=== PATIENT | female | born 1990 | race Two or more races ===

== ENCOUNTER 2022-12-27 08:01 | Outpatient (CLI) | payer OTHER | END 2022-12-27 09:15 | disposition home or self-care (01) | LOC: PRENATAL 08:01 | PROVIDERS: ATTEND Obstetrics & Gynecology Maternal & Fetal Medicine | DX: O36.80X0 Pregnancy with inconclusive fetal viability, not applicable or unspecified (principal); Z36.82 Encounter for antenatal screening for nuchal translucency; Z36.9 Encounter for antenatal screening, unspecified; O99.891 Other specified diseases and conditions complicating pregnancy; Z3A.13 13 weeks gestation of pregnancy ==

== ENCOUNTER 2023-02-17 12:31 | Outpatient (CLI) | payer OTHER | END 2023-02-17 12:32 | disposition home or self-care (01) | LOC: PRENATAL 12:31 | PROVIDERS: ATTEND Obstetrics & Gynecology Maternal & Fetal Medicine | DX: O35.9XX0 Maternal care for (suspected) fetal abnormality and damage, unspecified, not applicable or unspecified (principal); O35.3XX0 Maternal care for (suspected) damage to fetus from viral disease in mother, not applicable or unspecified; O44.00 Complete placenta previa NOS or without hemorrhage, unspecified trimester; Z3A.20 20 weeks gestation of pregnancy ==

== ENCOUNTER 2023-03-12 19:40 | Outpatient (CLI) | payer OTHER ==
[2023-03-12] MEDS ORDERED: PRENATABS RX T1 EACH PO (19:58)
[2023-03-12 20:15] LABS: HEMATOCRIT 34.8 % (36.0-45.00); HEMOGLOBIN 11.5 g/dL (12.0-15.00); MEAN CELL VOLUME 76.7 fL (80.00-100.00); MEAN CORPUSCULAR HEMOGLOBIN 25.4 pg (27.00-32.0); PLATELET COUNT 320 K/uL (150-450); RED BLOOD COUNT 4.53 M/uL (4.00-6.00); RED CELL DISTRIBUTION WIDTH 13.6 % (11.5-14.5)
[2023-03-12 20:19] LABS: PH,URINE 6.5 (5.0-8.0); URINE APPEARANCE Turbid; URINE BILIRRUBIN Negative (NEGATIVE); URINE BLOOD Large; URINE COLOR Red; URINE GLUCOSE Negative (NEGATIVE); URINE LEUKOCYTE Moderate; URINE NITRATE Negative
[2023-03-12 20:23] LABS: URINE BACTERIA 1031.9 uL (0.0-1933); URINE EPITHELIAL CELLS 10.3 uL (0.0-38.8)
[2023-03-12 20:40] LABS: URINE PROTEIN 300 (NEGATIVE); URINE RBC > 10558.9 uL (0.0-20.8)
[2023-03-12 20:50] LABS: ALBUMIN 3.1 gm/dL (3.4-5.0); BILIRUBIN TOTAL 0.39 mg/dL (0.3-1.2); CALCIUM 9.7 mg/dL (8.5-10.1); CREATININE SERUM 0.5 mg/dL (0.55-1.02); GFR 142.09; GLOBULINA 3.7 G/DL (2.4-3.5); POTASSIUM 4.65 mEq/L (3.5-5.1); TOTAL PROTEIN 6.8 gm/dL (6.4-8.2)
== END 2023-03-13 14:38 | disposition home or self-care (01) ==
LOC: OBS/DEL 19:40
PROVIDERS: Obstetrics & Gynecology; ATTEND Obstetrics & Gynecology
DX: O23.32 Infections of other parts of urinary tract in pregnancy, second trimester (principal); N39.0 Urinary tract infection, site not specified; Z3A.24 24 weeks gestation of pregnancy

== ENCOUNTER 2023-05-09 12:10 | Outpatient (CLI) | payer OTHER ==
[~2023-05-09 12:10] MED LIST: PRENATABS RX T1 EACH PO
== END 2023-05-09 12:11 | disposition home or self-care (01) ==
LOC: PRENATAL 12:10
PROVIDERS: ATTEND Obstetrics & Gynecology Maternal & Fetal Medicine
DX: O26.849 Uterine size-date discrepancy, unspecified trimester (principal); O36.8199 Decreased fetal movements, unspecified trimester, other fetus; O99.891 Other specified diseases and conditions complicating pregnancy; Z3A.32 32 weeks gestation of pregnancy

== ENCOUNTER 2023-06-20 13:45 | Inpatient (IN) | payer OTHER ==
[~2023-06-20] VITALS: Ht 175.3 cm; Wt 116.1 kg
[2023-06-27 08:17] LABS: HEMATOCRIT 31.7 % (36.0-45.00); HEMOGLOBIN 10.4 g/dL (12.0-15.00); MEAN CELL VOLUME 72.8 fL (80.00-100.00); MEAN CORPUSCULAR HEMOGLOBIN 23.9 pg (27.00-32.0); MEAN CORPUSCULAR HGB CONC 32.9 g/dl (32.0-36.0); PLATELET COUNT 369 K/uL (150-450); RED BLOOD COUNT 4.36 M/uL (4.00-6.00); RED CELL DISTRIBUTION WIDTH 15.8 % (11.5-14.5)
[2023-06-27 08:20] LABS: PH,URINE 6.5 (5.0-8.0); URINE APPEARANCE Turbid; URINE BILIRRUBIN Negative (NEGATIVE); URINE BLOOD Negative; URINE COLOR Yellow; URINE GLUCOSE Negative (NEGATIVE); URINE LEUKOCYTE Negative; URINE NITRATE Negative; URINE PROTEIN 30 (NEGATIVE); URINE UROBILINOGEN 0.2 E.U./dl
[2023-06-27 08:25] LABS: URINE BACTERIA 568.1 uL (0.0-1933); URINE EPITHELIAL CELLS 8.6 uL (0.0-38.8); URINE RBC 19.4 uL (0.0-20.8); URINE WBC 5.1 uL (0.0-23.2)
[2023-06-27 08:29] LABS: INR 0.95; PARTIAL THROMBOPLASTIN TIME 24.8 SECONDS (22.0-34.0)
[2023-06-27] MEDS ORDERED: SYMBICORT 80/10.2 GM PO (08:34)
[2023-06-27] MEDS ORDERED: LABETALOL HCL100 MG PO (08:35)
[2023-06-27 08:45] LABS: ALBUMIN 2.5 gm/dL (3.4-5.0); BILIRUBIN TOTAL 0.33 mg/dL (0.3-1.2); CALCIUM 9.7 mg/dL (8.5-10.1); CREATININE SERUM 0.53 mg/dL (0.55-1.02); GFR 132.05; GLOBULINA 3.9 G/DL (2.4-3.5); POTASSIUM 4.57 mEq/L (3.5-5.1); TOTAL PROTEIN 6.4 gm/dL (6.4-8.2)
[2023-06-27] MEDS ORDERED: RINGERS SOLUTION,LACTATED 1,000 ML IV SCH (08:45)
[2023-06-27] MEDS ORDERED: MISOPROSTOL 25 MCG/4 ML GEL.W.APPL VAG ONE ×2 (08:45→14:30)
[2023-06-27 09:09] LABS: URINE CRYSTALS MANY /HPF; URINE MUCUS HEAVY
[2023-06-27] MEDS ORDERED: OXYTOCIN 10 UNITS/ML VIAL ONE (18:58)
[2023-06-27] MEDS ORDERED: ERYTHROMYCIN BASE 3.5 GM OINT...G. OP ONE (18:58)
[2023-06-27] MEDS ORDERED: OXYTOCIN 10 UNITS/ML VIAL IV ONE (19:15)
[2023-06-27] MEDS ORDERED: ERYTHROMYCIN BASE 1 GM TUBE OP ONE (19:15)
[2023-06-27] MEDS ORDERED: CEFAZOLIN SODIUM 1,000 MG VIAL ONE (19:46)
[2023-06-27] MEDS ORDERED: MEPERIDINE HCL/PF 50 MG/ML VIAL IM PRN (20:30)
[2023-06-27] MEDS ORDERED: PROMETHAZINE HCL 50 MG/ML AMPUL IM PRN (20:30)
[2023-06-27] MEDS ORDERED: LABETALOL HCL 100 MG/20 ML ML IV ONE (22:00)
[2023-06-28 06:11] LABS: MEAN CELL VOLUME 73.5 fL (80.00-100.00); MEAN CORPUSCULAR HEMOGLOBIN 24.3 pg (27.00-32.0); PLATELET COUNT 326 K/uL (150-450); RED BLOOD COUNT 4.36 M/uL (4.00-6.00); RED CELL DISTRIBUTION WIDTH 15.6 % (11.5-14.5)
[2023-06-28 06:12] LABS: HEMOGLOBIN 10.6 g/dL (12.0-15.00)
[2023-06-28] MEDS ORDERED: OxyCODONE HCL/APAP UD (PERCOCET) PO PRN (08:00)
[2023-06-28] MEDS ORDERED: SIMETHICONE 125 MG CAPSULE PO SCH (09:00)
[2023-06-28] MEDS ORDERED: DOCUSATE SODIUM 100MG CAP PO SCH (09:00)
[2023-06-28] MEDS ORDERED: PNV,CALCIUM 72/IRON/FOLIC ACID 1 TAB TABLET PO SCH (09:00)
[2023-06-28] MEDS ORDERED: LABETALOL HCL 100 MG TABLET PO SCH (09:45)
== END 2023-06-30 14:06 | disposition home or self-care (01) | DRG 788 ==
LOC: LDR 06-27 06:19 → OB/GYN 06-27 13:45 → O/R 06-27 19:14 → OB/GYN 06-27 20:47
PROVIDERS: ADMIT Obstetrics & Gynecology; ATTEND Obstetrics & Gynecology
PROC: 3E033VJ Introduction of Other Hormone into Peripheral Vein, Percutaneous Approach (ICD-10-PCS; 2023-06-27)
PROC: 3E0P7VZ Introduction of Hormone into Female Reproductive, Via Natural or Artificial Opening (ICD-10-PCS; 2023-06-27)
PROC: 4A1HXCZ Monitoring of Products of Conception, Cardiac Rate, External Approach (ICD-10-PCS; 2023-06-27)
PROC: 10D00Z1 Extraction of Products of Conception, Low, Open Approach (ICD-10-PCS; principal; 2023-06-27 18:59)
DX: O14.04 Mild to moderate pre-eclampsia, complicating childbirth (principal); Z3A.39 39 weeks gestation of pregnancy; Z37.0 Single live birth; Z20.822 Contact with and (suspected) exposure to COVID-19

== ENCOUNTER 2023-07-04 19:10 | Emergency (ER) | payer OTHER ==
[~2023-07-04] VITALS: Ht 175.3 cm; Wt 113.4 kg
[~2023-07-04 19:10] MED LIST changes: +LABETALOL HCL100 MG PO; +SYMBICORT 80/10.2 GM PO
[2023-07-04 21:03] LABS: URINE APPEARANCE Clear; URINE BILIRRUBIN Negative (NEGATIVE); URINE BLOOD Negative; URINE COLOR Yellow; URINE GLUCOSE Negative (NEGATIVE); URINE LEUKOCYTE Trace; URINE NITRATE Negative; URINE PROTEIN Negative (NEGATIVE); URINE UROBILINOGEN 0.2 E.U./dl
[2023-07-04 21:05] LABS: MEAN CELL VOLUME 73.9 fL (80.00-100.00); MEAN CORPUSCULAR HEMOGLOBIN 23.6 pg (27.00-32.0); MEAN CORPUSCULAR HGB CONC 31.9 g/dl (32.0-36.0); PLATELET COUNT 445 K/uL (150-450)
[2023-07-04 21:06] LABS: URINE BACTERIA 33.9 uL (0.0-1933); URINE WBC 6.6 uL (0.0-23.2)
[2023-07-04 21:23] LABS: URINE RBC 0.2 uL (0.0-20.8)
[2023-07-04 21:27] LABS: CREATININE SERUM 0.69 mg/dL (0.55-1.02); GFR 97.39; POTASSIUM 3.44 mEq/L (3.5-5.1)
[2023-07-04] MEDS ORDERED: CIPRO500 MG PO (21:56)
== END 2023-07-04 22:18 ==
LOC: ER 19:11
PROVIDERS: Nurse Practitioner Family
DX: O86.01 Infection of obstetric surgical wound, superficial incisional site (principal); Z88.0 Allergy status to penicillin; Z91.018 Allergy to other foods